=== PATIENT | male | born 1970 | race Caucasian/White ===

== ENCOUNTER 2024-02-08 09:44 | Emergency (ER) | payer OTHER, SELFPAY ==
[2024-02-08 09:46] VITALS: BMI 27.0
[2024-02-08 09:57] VITALS: BP 107/83
--- NOTE | 2024-02-08 10:00 | ED.GENMED ---
History of Present Illness
<Sarah Alejo PA-C - Last Filed: 02/08/24 17:29>
General
Chief Complaint: Heart Rate Problem
Source: patient
Exam Limitations: none
Time Seen by Provider: 02/08/24 10:00
Nursing documentation reviewed up to this point in time: agreed with
History of Present Illness
History of Present Illness:
54-year-old male presents emergency department from urgent care with concerns of palpitations. Patient reports that last night he was in the hot top with his when he started to feel slightly lightheaded and dizzy and felt slightly 'off.'
Patient reports that he went to bed and then when he woke up this morning, he felt his heart racing and uncomfortable sensation in his chest. He denies chest pain. He does note some mild shortness of breath however he does note that that he has
had this for the past few days as well as a productive cough and notes that he was exposed to someone with pneumonia. He denies sore throat, runny nose. Does note generalized congestion. He does have a history of hypertension used to take
lisinopril but has been since taken off of this medication. Patient has never had this sensation before. Patient has a family history of irregular heart rate and CAD in his mom. He drinks one cup of tea daily otherwise no caffeine. He does not
smoke. Currently, the palpitations have resolved but he does note some mild fatigue and lightheadedness.
Review of Systems
<Sarah Alejo PA-C - Last Filed: 02/08/24 17:29>
Review of Systems
All Other Systems: ROS reviewed and negative except as documented in HPI and ROS
Phy Exam
<Sarah Alejo PA-C - Last Filed: 02/08/24 17:29>
Physical Exam
Physical Exam:
General: Patient is well appearing and in no acute distress; non-toxic
Skin: Warm and dry, no rashes or lesions
Head: Normocephalic, atraumatic
Eyes: Sclera non-icteric. EOMs intact.
Cardiac: Regular rate and rhythm, no murmurs
Peripheral Vascular: No lower extremity swelling or edema
Pulm: Normal respiratory effort, scattered rhonchi heard bilaterally
Neuro: CN II-XII intact, no focal neurologic deficits.
Psychiatric: Appropriate mood and affect.
Course
<Sarah Alejo PA-C - Last Filed: 02/08/24 17:29>
Orders/Labs/Results
Orders:
Orders
02/08/24 09:45
EKG [Electrocardiogram (*1)] Urgent
Reason for Study: Palpitations
EKG- Treatment ONCE
02/08/24 10:08
IV Insert/Care/Rem.- Treatment PRN
02/08/24 10:17
Complete Blood Count/With Diff Urgent
Comprehensive Metabolic Panel Urgent
Magnesium Urgent
TSH Reflex To Free T4 Urgent
02/08/24 10:20
Electrocardiogram (*1) Urgent
Reason for Study: Palpitations
EKG- Treatment ONCE
CR Chest - 2 Views Urgent
Comment:
Reason For Exam: scattered rhonchi bilaterally
02/08/24 12:12
Diltiazem Extended Release [Cardizem Cd] 120 mg PO NOW STA
Abnormal Lab Results
02/08/24
10:17
MCH 31.1 H pg
(27.0-31.0)
Glucose 118 H mg/dl
(70-99)
02/08/24 10:17
02/08/24 10:17
Vital Signs
Initial and Last Documented VS:
Initial Vital Signs
Temp Pulse Resp BP Pulse Ox
98.4 F 148 18 107/83 98
02/08/24 09:57 02/08/24 09:57 02/08/24 09:57 02/08/24 09:57 02/08/24 09:57
Last Documented Vital Signs
Temp Pulse Resp BP Pulse Ox
98.4 F 68 15 105/87 99
02/08/24 09:57 02/08/24 13:03 02/08/24 12:30 02/08/24 13:03 02/08/24 13:03
<Scooby Hawley, DO - Last Filed: 02/08/24 11:43>
Orders/Labs/Results
Orders:
Orders
02/08/24 09:45
EKG [Electrocardiogram (*1)] Urgent
Reason for Study: Palpitations
EKG- Treatment ONCE
02/08/24 10:08
IV Insert/Care/Rem.- Treatment PRN
02/08/24 10:17
Complete Blood Count/With Diff Urgent
Comprehensive Metabolic Panel Urgent
Magnesium Urgent
TSH Reflex To Free T4 Urgent
02/08/24 10:20
Electrocardiogram (*1) Urgent
Reason for Study: Palpitations
EKG- Treatment ONCE
CR Chest - 2 Views Urgent
Comment:
Reason For Exam: scattered rhonchi bilaterally
02/08/24 12:12
Diltiazem Extended Release [Cardizem Cd] 120 mg PO NOW STA
Abnormal Lab Results
02/08/24
10:17
MCH 31.1 H pg
(27.0-31.0)
Glucose 118 H mg/dl
(70-99)
02/08/24 10:17
02/08/24 10:17
Vital Signs
Initial and Last Documented VS:
Initial Vital Signs
Temp Pulse Resp BP Pulse Ox
98.4 F 148 18 107/83 98
02/08/24 09:57 02/08/24 09:57 02/08/24 09:57 02/08/24 09:57 02/08/24 09:57
Last Documented Vital Signs
Temp Pulse Resp BP Pulse Ox
98.4 F 68 15 105/87 99
02/08/24 09:57 02/08/24 13:03 02/08/24 12:30 02/08/24 13:03 02/08/24 13:03
<Sarah Alejo PA-C - Last Filed: 02/08/24 17:29>
MDM/Problems Addressed
Differential Diagnosis Includes:
ddx include new onset afib triggered by electrolyte derangement, recent respiratory illness, hypertension, sleep apnea
MDM/Problems Addressed:
54 y/o male presents to the emergency department from urgent care for new onset afib. Of note, he was outside in the hot tub drinking last night and has had a cold for the past few days. He denies history of sleep apnea. He is not a smoker. On
exam, he is well-appearing, no acute distress. His heart was regular rate and rhythm, no murmurs. Patient was in rapid A-fib in triage but when coming back to the emergency department, he converted to normal sinus rhythm. He had a chest x-ray
which shows no evidence of pneumonia or cardiopulmonary process. His TSH and electrolytes are within normal limits. Considering Chads-vasc: 1 (hx of hypertension), no anticoagulation indicated this time. Will start patient on extended release
diltiazem and have patient follow-up with cardiology. Discussed this case with my ER attending. Patient stable for discharge.
Chronic conditions affecting care:
n/a
Acute Exacerbation and/or Progression of Chronic Illness:
n/a
<Sarah Alejo PA-C - Last Filed: 02/08/24 17:29>
*Pulse Oximetry
Patient hypoxic: no
*EKG
Interpreted by ED Provider?: Yes
EKG Intrepretation Date: 02/08/24
Interpretation: abnormal
Comparison EKG: no comparison EKG present
Heart Rate: 131
Rate: tachycardiac
Rhythm: a-fib
*Critical Care Note
Total Time (30-74mins, 75-104mins- exclusive of procedures): Not Applicable
Data Reviewed
Review of Other/Old Records Reveals: Records (No previous ER physician documentation to review no discharge summaries in [facility] to review)
Source: patient and records
ED Attending Note
<Sarah Alejo PA-C - Last Filed: 02/08/24 17:29>
-
Portions of this chart may have been created with voice recognition software.� Occasional wrong word or��sound alike� substitutions may have occurred due to the inherent limitations of voice recognition software.
<Scooby Hawley DO - Last Filed: 02/08/24 11:43>
ED Attending Note
Patient seen and examined by attending physician: Yes
I performed the substantive portion of visit, reviewed & personally made and approve the management plan that is documented in note by myself or HELEN.: Yes
ED Attending Note:
Seen with AARON examined independently 54-year-old male palpitations emergent care started last night after being in a hot tub had an alcoholic drink, converted spontaneously out of A-fib labs are noted, [id number] is noted
Discharge Plan
Departure
Patient Disposition: Home (Routine Discharge)
Date of Disposition: 02/08/24
Time of Disposition: 12:21
Patient with high blood pressure during this ER visit?: No
Condition: Good
Discharge Problem:
New onset atrial fibrillation
Instructions: Atrial Fibrillation (DC), Diltiazem, BLOOD PRESSURE
Prescriptions:
New
diltiazem HCl [Cardizem CD] 120 mg capsule,extended release 24hr
120 mg PO DAILY Qty: 30 0RF
Referrals:
Josue Arango MD [Family Provider] -
Mandeep Welsh MD [Active] - Call in 1-3 days for appt
Activity Restrictions/Additional Instructions:
Cardizem has been sent to your pharmacy. Please take one tablet once daily.
Please call the attached number for Dr. Welsh's office to schedule an appointment for evaluation.
Please follow up with your PCP with your scheduled appointment.
Please return to the emergency department should you experience chest pain, shortness of breath, lightheadedness, dizziness, syncopal episodes, palpitations, or any other signs or symptoms worrisome to you.
Interventions
Interventions:
*Risk Screen - Suicide Last Done: 02/08/24 09:57
*General Assessment Last Done: 02/08/24 09:57
*Neglect/Abuse Screening Last Done: 02/08/24 10:12
*ED COVID-19 Vaccine History Last Done: 02/08/24 10:20
*Nursing Disposition Last Done: 02/08/24 13:03
ED- Cardiac Assessment Last Done: 02/08/24 11:30
ED- Pulmonary Assessment Last Done: 02/08/24 11:30
Discharge Date and Time
Discharge Date/Time: 02/08/24 13:05
Print Language: ALBANIAN
[2024-02-08 10:16] VITALS: BP 121/83
[2024-02-08 10:25] LABS: % Basophils 1.1 % (0-2); % Immature Granulocytes 0.3 % (0-0.5); % Lymphocytes 28.5 % (20.5-51.1); % Neutrophils 59.1 % (42.2-75.2); Absolute Basophils 0.1 10^3/uL (0-0.2); Absolute Eosinophils 0.1 10^3/uL (0-0.7); Absolute Lymphocytes 1.8 10^3/uL (1.2-3.4); Absolute Monocytes 0.6 10^3/uL (0.1-0.6); Absolute Neutrophils 3.6 10^3/uL (1.4-6.5); Hematocrit 47.5 % (39.0-52.0); Hemoglobin 16.8 g/dL (13.0-18.0); Mean Corp Hgb Conc. 35.4 g/dL (33.0-37.0); Mean Corpuscular Hgb 31.1 pg (27.0-31.0); Mean Corpuscular Volume 87.8 fL (80.0-94.0); Nucleated Red Blood Cells % 0 % (-); Platelet Count 268 10^3/uL (130-400); Red Blood Cell Count 5.41 10^6/uL (4.70-6.10); Red Cell Dist. Width 12.4 % (11.5-14.5); White Blood Cell Count 6.1 10^3/uL (4.8-10.8)
[2024-02-08 10:53] LABS: ALT (SGPT) 30 U/L (0-50); AST (SGOT) 30 U/L (17-59); Albumin 4.4 g/dl (3.5-5.0); Alkaline Phosphatase 86 U/L (38-126); Blood Urea Nitrogen 18 mg/dl (9-20); Calcium 9.6 mg/dl (8.4-10.2); Carbon Dioxide 25 mmol/L (22-30); Chloride 104 mmol/L (98-107); Estimated Creatinine Clearance 74 ml/min; Glucose 118 mg/dl (70-99); Magnesium 2.1 mg/dl (1.6-2.3); Potassium 3.9 mmol/L (3.5-5.1); Sodium 140 mmol/L (135-145); Total Bilirubin 0.7 mg/dl (0.2-1.3); Total Protein 6.9 g/dl (6.3-8.2); eGFR > 60.00
[2024-02-08 11:23] VITALS: BP 119/82
[2024-02-08 11:33] LABS: TSH Reflex To Free T4 1.43 uIU/ml (0.47-4.68)
[2024-02-08 12:00] VITALS: BP 104/76
[2024-02-08 12:10] VITALS: BP 105/87
[2024-02-08] MEDS: CARDIZEM CD 120 MG PO (12:27)
[2024-02-08 13:03] VITALS: BP 105/87
== END 2024-02-08 13:05 | disposition home or self-care (01) ==
LOC: EMR 09:44
PROVIDERS: Physician Assistant; EMERGENCY PHYSICIAN Emergency Medicine; FAMILY PHYSICIAN Family Medicine
DX: I48.91 Unspecified atrial fibrillation (principal); I10 Essential (primary) hypertension
CPT/HCPCS: 99285; 71046; 80053; 83735; 84443; 85025; 93005

== ENCOUNTER → 2024-10-11 08:42 | Outpatient (REF) | payer OTHER, SELFPAY | LOC: PAVMRI 08:42 | PROVIDERS: ATTENDING PHYSICIAN Psychiatry & Neurology Neurology; FAMILY PHYSICIAN Family Medicine | DX: M47.816 Spondylosis without myelopathy or radiculopathy, lumbar region (principal); M47.817 Spondylosis without myelopathy or radiculopathy, lumbosacral region | CPT/HCPCS: 72148 ==